=== PATIENT | female | born 2000 | race Caucasian/White ===

== ENCOUNTER 2019-07-26 09:29 | Emergency (ER) | payer OTHER ==
[~2019-07-26] VITALS: Ht 162.6 cm; Wt 68.2 kg
[2019-07-26] MEDS ORDERED: ACETAMINOPHEN TAB 650MG DOSE (2X325MG) PO ONE (10:00)
[2019-07-26 10:12] LABS: BASO # 0.1 10^3/uL (0.0-0.2); BASO % 0.9 % (0.0-1.0); EOS # 0.1 10^3/uL (0.0-0.5); EOS % 1.3 % (0.0-3.0); HEMATOCRIT 41.1 % (36.0-47.0); HEMOGLOBIN 14.1 g/dl (12.0-15.5); LYMPH # 1.9 10^3/uL (1.5-5.0); LYMPH % 27.5 % (24.0-44.0); MEAN CORPUSCULAR HEMOGLOBIN 31.3 pg (27.0-33.0); MEAN CORPUSCULAR HGB CONC 34.3 g/dl (32.0-36.5); MEAN CORPUSCULAR VOLUME 91.3 fl (80.0-96.0); MONO # 0.7 10^3/uL (0.0-0.8); NEUTROPHILS # 4.1 10^3/uL (1.5-8.5); NEUTROPHILS % 60.2 % (36.0-66.0); PLATELET COUNT, AUTOMATED 291 10^3/uL (150-450); WHITE BLOOD COUNT 6.8 10^3/uL (4.0-10.0)
--- NOTE | 2019-07-26 11:32 | REP ---
REASON: Vaginal bleeding. Transvesical and transvaginal imaging were obtained. The uterus measures 6 x 3 x 3.3 cm. The endometrial echocomplex is smooth and unremarkable appearing measuring 8 mm in its greatest thickness. There is no free fluid in the endometrial cavity. There is no evidence of an intrauterine gestational sac. The right ovary measures 3.3 x 1.7 x 1.9 cm and is within normal limits. There is an incidental likely resolving right ovarian follicle. This is minimally complex and may have a slight hemorrhagic component. The right ovarian RI is 0.61. The left ovary measures 2.2 x 1.1 x 1.6 cm and is within normal limits with an RI of 0.58. Seen in the left adnexa adjacent to the left ovary, there is a 2.7 x 2.2 x 2.2 cm sized anechoic structure which exhibits posterior wall enhancement and increased through transmission, likely a small paraovarian cyst. IMPRESSION: There is no evidence of an intrauterine or extrauterine at this time. Findings as described above. Electronically Signed by Chino Alarcon DO 07/26/2019 11:35 A
[2019-07-26 11:53] VITALS: BP 116/62
[2019-07-26] MEDS ORDERED: KEFL500C17 PO (11:53)
[2019-07-26 12:34] LABS: CHLAMYDIA DNA AMPLIFICATION NEGATIVE (NEGATIVE); GC DNA AMPLIFICATION NEGATIVE (NEGATIVE)
== END 2019-07-26 12:03 | disposition home or self-care (01) ==
LOC: M ED 09:29
DX: O03.9 Complete or unspecified spontaneous abortion without complication (principal); O26.899 Other specified pregnancy related conditions, unspecified trimester; O34.80 Maternal care for other abnormalities of pelvic organs, unspecified trimester; O23.10 Infections of bladder in pregnancy, unspecified trimester